=== PATIENT | male | born 1995 | race Two or more races ===

== ENCOUNTER 2019-08-18 13:27 | Emergency (ER) | payer OTHER ==
[~2019-08-18] VITALS: Ht 172.7 cm; Wt 79.0 kg
[2019-08-18] MEDS ORDERED: IV NORMAL SALINE 1,000ML 1,000 ML IV SCH (13:57)
[2019-08-18] MEDS ORDERED: ASPIRIN ENTERIC COATED 81 MG TABLET.DR. PO ONE (14:08)
--- NOTE | 2019-08-18 14:09 | PHYS DOC ---
Adult General Chief Complaint Chief Complaint: CHEST PAIN-NON CARDIAC NATURE HPI HPI 24-year-old male presents with chest pain. He was sitting on his couch around 8 this morning when he began the pressure was a 4 out of 10 on the left side of his chest. It seemed to radiate into his left arm. He felt mildly short of breath, but denies diaphoresis. He is never had this before. He has no previous cardiac history. Pain is currently a 4 out of 10. It is the same pressure feeling. He does not currently feel short of breath. Patient denies fever, chills, cough. Upper chest is tender to palpation. Denies rash. Review of Systems Review of Systems Constitutional: Denies fever or chills [] Eyes: Denies change in visual acuity, redness, or eye pain [] HENT: Denies nasal congestion or sore throat [] Respiratory: Denies cough or shortness of breath [] Cardiovascular: No additional information not addressed in HPI [] GI: Denies abdominal pain, nausea, vomiting, bloody stools or diarrhea [] : Denies dysuria or hematuria [] Musculoskeletal: Denies back pain or joint pain [] Integument: Denies rash or skin lesions [] Neurologic: Denies headache, focal weakness or sensory changes [] Endocrine: Denies polyuria or polydipsia [] All other systems were reviewed and found to be within normal limits, except as documented in this note. Current Medications Current Medications Current Medications Medications (Trade) Dose Ordered Sig/Negar Start Time Stop Time Status Last Admin Dose Admin Aspirin (Children'S Aspirin) 324 mg 1X ONCE 08/18/19 14:00 08/18/19 14:01 UNV Sodium Chloride 1,000 ml @ 1,000 mls/hr Q1H 08/18/19 13:57 08/18/19 14:56 UNV Physical Exam Physical Exam Constitutional: Well developed, well nourished, no acute distress, non-toxic appearance. [] HENT: Normocephalic, atraumatic, bilateral external ears normal, oropharynx moist, no oral exudates, nose normal. [] Eyes: PERRLA, EOMI, conjunctiva normal, no discharge. [] Neck: Normal range of motion, no tenderness, supple, no stridor. [] Cardiovascular: Heart rate 52, regular rhythm, no murmur [] Lungs & Thorax: Bilateral breath sounds clear to auscultation. Upper chest tenderness to palpation.[] Abdomen: Bowel sounds normal, soft, no tenderness, no masses, no pulsatile masses. [] Skin: Warm, dry, no erythema, no rash. [] Back: No tenderness, no CVA tenderness. [] Extremities: No tenderness, no cyanosis, no clubbing, ROM intact, no edema. [] Neurologic: Alert and oriented X 3, normal motor function, normal sensory funct ion, no focal deficits noted. [] Psychologic: Affect normal, judgement normal, mood anxious. [] EKG EKG Sinus rhythm, rate 52, normal axis, no ST elevations or depressions.[] Radiology/Procedures Radiology/Procedures [] Course & Med Decision Making Course & Med Decision Making Pertinent Labs and Imaging studies reviewed. (See chart for details) Patient's labs are unremarkable. Troponin is negative. His EKG is unremarkable. His chest x-ray is negative for acute findings. I do not see any cardiopulmonary cause for the patient's symptoms. I believe this is musculoskeletal. I have advised NSAID therapy and rest. He is stable for discharge at this time. [] Dragon Disclaimer Dragon Disclaimer This electronic medical record was generated, in whole or in part, using a voice recognition dictation system. The HEART Score for CP Pts HEART Score for Chest Pain: HEART Score for Chest Pain Response (Comments) Value History Slighlty/Non-Suspicious 0 ECG Normal 0 Age < 45 0 Risk Factors No Risk Factors 0 Troponin < Normal Limit 0 Total 0 Risk Factors: Risk Factors: DM, Current or recent (<one month) smoker, HTN, HLP, family history of CAD, obesity. Risk Scores: Score 0 - 3: 2.5% MACE over next 6 weeks - Discharge Home Score 4 - 6: 20.3% MACE over next 6 weeks - Admit for Clinical Observation Score 7 - 10: 72.7% MACE over next 6 weeks - Early Invasive Strategies Departure Departure: Impression: Primary Impression: Chest wall pain Disposition: HOME, SELF-CARE Condition: STABLE Referrals: PCP,UNKNOWN (PCP) Patient Instructions: Chest Wall Pain, [id number] [place] DO Aug 18, 2019 14:09
--- NOTE | 2019-08-18 14:14 | EKG ---
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
[2019-08-18] MEDS ORDERED: ASPIRIN 81 MG TAB.CHEW PO ONE (14:15)
--- NOTE | 2019-08-18 14:19 | RAD ---
EXAM: CHEST PA LATERAL INDICATION: Chest pain, shortness of breath.. TECHNIQUE: PA and lateral views COMPARISON: None FINDINGS: The heart size is normal. The great vessels appear unremarkable. There is no hilar or mediastinal mass. The lungs are clear. There is no pleural effusion or pneumothorax. There are no significant osseous abnormalities. IMPRESSION: No active cardiopulmonary disease. Electronically signed by: Cris Garcia MD (08/18/2019 2:17 PM) [facility]
[2019-08-18 14:34] LABS: BASO # 0.1 x10^3/uL (0.0-0.2); BASO % 1 % (0-3); EOS # 0.3 x10^3/uL (0.0-0.7); EOS % 4 % (0-3); HEMATOCRIT 44.4 % (39.0-53.0); HEMOGLOBIN 15.1 g/dL (13.0-17.5); LYMPH # 2.2 x10^3/uL (1.0-4.8); LYMPH % 34 % (24-48); MEAN CORPUSCULAR HEMOGLOBIN 30 pg (25-35); MEAN CORPUSCULAR HGB CONC 34 g/dL (31-37); MEAN CORPUSCULAR VOLUME 89 fL (79-100); MONO # 0.5 x10^3/uL (0.0-1.1); MONO % 8 % (0-9); NEUT # 3.4 x10^3uL (1.8-7.7); NEUT % 53 % (31-73); PLATELET COUNT 206 x10^3/uL (140-400); RED BLOOD COUNT 4.98 x10^6/uL (4.30-5.70); RED CELL DISTRIBUTION WIDTH 13.5 % (11.5-14.5); WHITE BLOOD COUNT 6.5 x10^3/uL (4.0-11.0)
[2019-08-18 15:07] LABS: CALCIUM 9.1 mg/dL (8.5-10.1); CREATININE 0.8 mg/dL (0.7-1.3); GFR 119.8; POTASSIUM 4.2 mmol/L (3.5-5.1)
[2019-08-18 15:13] LABS: ALBUMIN 4.2 g/dL (3.4-5.0); ALBUMIN/GLOBULIN RATIO 1.1 (1.0-1.7); TOTAL BILIRUBIN 0.9 mg/dL (0.2-1.0); TOTAL PROTEIN 7.9 g/dL (6.4-8.2)
[2019-08-18 15:18] VITALS: BP 117/64
== END 2019-08-18 15:40 | disposition home or self-care (01) ==
LOC: ER 13:27
DX: R07.89 Other chest pain (principal)
CPT/HCPCS: 36415; 71046; 80053; 84484; 85025; 93005; 99285; J7030

== ENCOUNTER 2019-08-21 23:39 | Emergency (ER) | payer OTHER ==
[~2019-08-21] VITALS: Ht 172.7 cm; Wt 79.0 kg
[2019-08-21] MEDS ORDERED: IV RINGERS SOLUTION,LACTATED 1,000 ML IV SCH (23:46)
[2019-08-22] MEDS ORDERED: FAMOTIDINE 20 MG/2 ML VIAL IVP ONE
[2019-08-22] MEDS ORDERED: KETOROLAC 30 MG/ML VIAL. IVP ONE
[2019-08-22] MEDS ORDERED: ASPIRIN 81 MG TAB.CHEW PO ONE
[2019-08-22] MEDS ORDERED: ONDANSETRON PF 4 MG/2 ML VIAL. IVP ONE
--- NOTE | 2019-08-22 00:15 | PHYS DOC ---
Past History Past Medical History: No Pertinent History, GERD Past Surgical History: Other Additional Past Surgical Histo: wisdom teeth Alcohol Use: Occasionally Adult General Chief Complaint Chief Complaint: MULTIPLE COMPLAINTS. .. I have chest pain.. I have vomiting... 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 Patient thinks he may have eaten some bad food. Patient denies any specific ill contacts. No recent travel. No history immunosuppression. No history of trauma. Normally healthy. Patient was seen on 08-18-2019 chest wall pain complaints. Patient's cardiac troponin was 0.017 on 08/18/2019. to day trop. is 0.017. Pt. works out almost daily. This is some hx of bad food intake. Pt. has not had a stool since 3 days ago. Patient is up-to-date with vaccinations. Review of Systems Review of Systems Constitutional: Complaints of fever or chills [] Eyes: Denies change in visual acuity, redness, or eye pain [] HENT: Complaints nasal congestion [] Respiratory: Denies cough or shortness of breath [. Patient does have]history of chest wall pain Cardiovascular: No additional information not addressed in HPI [] GI: Complaints of generalized abdominal pain, nausea, vomiting,. Patient denies bloody stools or diarrhea []history of constipation : Denies dysuria or hematuria [] Musculoskeletal: Denies back pain or joint pain [] Integument: Denies rash or skin lesions [] Neurologic: Denies headache, focal weakness or sensory changes [] Endocrine: Denies polyuria or polydipsia [] All other systems were reviewed and found to be within normal limits, except as documented in this note. Family History Family History Non-contributory Current Medications Current Medications Current Medications Medications (Trade) Dose Ordered Sig/Negar Start Time Stop Time Status Last Admin Dose Admin Aspirin (Children'S Aspirin) 324 mg 1X ONCE 08/22/19 00:00 08/22/19 00:01 UNV Famotidine (Pepcid Vial) 20 mg 1X ONCE 08/22/19 00:00 08/22/19 00:01 UNV Ketorolac Tromethamine (Toradol 30mg Vial) 30 mg 1X ONCE 08/22/19 00:00 08/22/19 00:01 UNV Lactated Ringer's 1,000 ml @ 1,000 mls/hr Q1H 08/21/19 23:46 08/22/19 00:45 UNV Ondansetron HCl (Zofran) 8 mg 1X ONCE 08/22/19 00:00 08/22/19 00:01 UNV Allergies Allergies Allergies Coded Allergies Type Severity Reaction Last Updated Verified No Known Drug Allergies 08/18/19 No Physical Exam Physical Exam Constitutional: Well developed, well nourished, moderate acute distress, non- toxic appearance. [] HENT: Normocephalic, atraumatic, bilateral external ears normal, oropharynx moist, no oral exudates, nose normal. [] Eyes: PERRLA, EOMI, conjunctiva normal, no discharge. [] Neck: Normal range of motion, no tenderness, supple, no stridor. [] Cardiovascular: Bradycardia Heart rate regular rhythm, no murmur [] Lungs & Thorax: Bilateral breath sounds equal at apexes on auscultation [] Abdomen: Bowel sounds hyperactive, soft, epigastric and left upper quadrant tenderness, no masses, no pulsatile masses. Very distended. Some rebound to left upper quadrant Skin: Warm, dry, no erythema, no rash. [] Tattoos. Back: No tenderness, no CVA tenderness. [] Extremities: No tenderness, no cyanosis, no clubbing, ROM intact, no edema. [] No psoas sign. No cording appreciated Neurologic: Alert and oriented X 3, normal motor function, normal sensory function, no focal deficits noted. [] Psychologic: Affect anxious, , judgement normal, mood normal. [] EKG EKG My interpretation EKG shows a sinus rhythm at 63 bpm. Does have a right bundle- branch block.[] Radiology/Procedures Radiology/[place] [address] IMAGING REPORT Signed PATIENT: CLAUDIA STANLEYOUNT: [id number] : 1995 LOCATION: ER AGE: 24 SEX: M EXAM STATUS: REG ER ORD. PHYSICIAN: URBANO STRAUSS MD REASON: pain PROCEDURE: CHEST PA & LATERAL CHEST PA LATERAL History: Pain Comparison: Two-view chest, 4 days ago. Findings: The cardiomediastinal silhouette is normal. Pulmonary vasculature is normal. The lungs are clear. No pleural effusion or pneumothorax is seen. There is no acute bone abnormality. IMPRESSION: No acute cardiopulmonary process. Electronically signed by: Cleveland Rubio MD (08/22/2019 1:25 AM) [id number] DICTATED AND SIGNED BY: CLEVELAND RUBIO MD DATE: 08/22/19124 CC: URBANO STRAUSS MD; PCP,NO ~ [address] [place] [address] IMAGING REPORT Signed PATIENT: CLAUDIA STANLEYOUNT: [id number] : 1995 LOCATION: ER AGE: 24 SEX: M EXAM STATUS: REG ER ORD. PHYSICIAN: URBANO STRAUSS MD REASON: pain PROCEDURE: ABDOMEN SUPINE & UPRIGHT KUB, upright and supine. Clinical Indication: Pain. Comparison: None. Findings: There are no air-fluid levels on the upright image. There is moderate colon stool volume. There is no dilated small bowel. The bowel gas pattern is nonobstructive. No obvious organomegaly. No radiopaque calculus or foreign body. Bones unremarkable. IMPRESSION: 1. Nonobstructive bowel gas pattern. 2. Moderate colon stool volume suggests constipation. Electronically signed by: Cleveland Rubio MD (08/22/2019 1:24 AM) [id number] DICTATED AND SIGNED BY: CLEVELAND RUBIO MD DATE: 08/22/19123 CC: URBANO STRAUSS MD; PCP,NO ~ Course & Med Decision Making Course & Med Decision Making Pertinent Labs and Imaging studies reviewed. (See chart for details) Patient stay on a clear fluid diet only for the next 48 hours. Patient to expect some cramping and passage of stool. Patient take Zofran 8 mg up 4 times a day for active vomiting. Take Tylenol and ibuprofen for pain. Take Zantac 150 twice a day. Follow-up primary care. Return if any concern. Patient have re-exam if no improvement after passage of stool. Follow-up at [place]. []Impression: 1. Abdomen pain 2. Chest wall pain 3. Constipation 4. Viral syndrome versus food poisoning 5. GERD, Gastritis Dragon Disclaimer Dragon Disclaimer This electronic medical record was generated, in whole or in part, using a voice recognition dictation system. Departure Departure: Disposition: HOME/RESIDENCE PRIOR TO ADM Condition: STABLE Referrals: PCP,NO (PCP) Scripts Ranitidine Hcl (ZANTAC) 150 Mg Tablet 150 MG PO BID for gastritis and reflux for 30 Days, #60 TAB Prov: URBANO STRAUSS MD 08/22/19 Ondansetron Hcl (ZOFRAN) 8 Mg Tablet 8 MG PO QIDPRN PRN for for active vomiting, #30 BOTTLE Prov: URBANO STRAUSS MD 08/22/19 Jean Paul Disclaimer This chart was dictated in whole or in part using Voice Recognition software in a busy, high-work load, and often noisy Emergency Department environment. It may contain unintended and wholly unrecognized errors or omissions. Dragon Disclaimer This chart was dictated in whole or in part using Voice Recognition software in a busy, high-work load, and often noisy Emergency Department environment. It may contain unintended and wholly unrecognized errors or omissions. URBANO STRAUSS MD Aug 22, 2019 00:15
[2019-08-22 00:26] LABS: BASO # 0.1 x10^3/uL (0.0-0.2); BASO % 1 % (0-3); EOS # 0.5 x10^3/uL (0.0-0.7); EOS % 7 % (0-3); HEMATOCRIT 41.9 % (39.0-53.0); HEMOGLOBIN 14.4 g/dL (13.0-17.5); LYMPH # 3.1 x10^3/uL (1.0-4.8); LYMPH % 43 % (24-48); MEAN CORPUSCULAR HEMOGLOBIN 31 pg (25-35); MEAN CORPUSCULAR HGB CONC 34 g/dL (31-37); MEAN CORPUSCULAR VOLUME 89 fL (79-100); MONO # 0.5 x10^3/uL (0.0-1.1); MONO % 7 % (0-9); NEUT % 41 % (31-73); PLATELET COUNT 210 x10^3/uL (140-400); RED BLOOD COUNT 4.71 x10^6/uL (4.30-5.70); RED CELL DISTRIBUTION WIDTH 13.4 % (11.5-14.5); WHITE BLOOD COUNT 7.2 x10^3/uL (4.0-11.0)
[2019-08-22 00:32] LABS: BILIRUBIN,URINE NEG (NEG); CLARITY,URINE CLEAR; COLOR,URINE YELLOW; GLUCOSE,URINE NEG (NEG)
[2019-08-22 00:33] LABS: BACTERIA,URINE 0 /HPF (0-FEW); NITRITE,URINE NEG (NEG); RBC,URINE 0 /HPF (0-2); SQUAMOUS EPITHELIAL CELL,UR OCC /LPF; WBC,URINE 0 /HPF (0-4)
[2019-08-22 00:34] LABS: CALCIUM 8.5 mg/dL (8.5-10.1); CREATININE 0.9 mg/dL (0.7-1.3); GFR 104.6; POTASSIUM 3.6 mmol/L (3.5-5.1)
[2019-08-22 00:39] LABS: BARBITURATES NEG (NEG); BENZODIAZEPINES NEG (NEG); CANNABINOIDS NEG (NEG); COCAINE NEG (NEG); METHADONE NEG (NEG); OPIATES NEG (NEG); PHENCYCLIDINE NEG (NEG)
[2019-08-22 00:41] LABS: AMPHETAMINE/METHAMPHETAMINE NEG (NEG)
[2019-08-22 00:46] LABS: ALBUMIN 3.9 g/dL (3.4-5.0); DIRECT BILIRUBIN 0.2 mg/dL (0.0-0.2); MAGNESIUM 1.9 mg/dL (1.8-2.4); TOTAL BILIRUBIN 0.4 mg/dL (0.2-1.0); TOTAL PROTEIN 7.5 g/dL (6.4-8.2)
[2019-08-22 00:51] LABS: INFLUENZA A PATIENT NEGATIVE (NEGATIVE); INFLUENZA B PATIENT NEGATIVE (NEGATIVE)
--- NOTE | 2019-08-22 01:13 | EKG ---
[address] [address] Test Date: 2019-08-21 Test Time: 23:48:55 Pat Name: CLAUDIA STANLEY Department: Room: Gender: M [employer]: : 1995 Requested By: URBANO STRAUSS Order Number: [id number] Reading MD: Measurements Intervals [place] Rate: 63 P: 42 WI: 190 QRS: 24 QRSD: 98 T: 64 QT: 358 QTc: 369 Interpretive Statements SINUS RHYTHM S1,S2,S3 PATTERN INCOMPLETE RIGHT BUNDLE BRANCH BLOCK T ABNORMALITY IN HIGH LATERAL LEADS ABNORMAL ECG RI6.01 No previous ECG available for comparison
--- NOTE | 2019-08-22 01:27 | RAD ---
KUB, upright and supine. Clinical Indication: Pain. Comparison: None. Findings: There are no air-fluid levels on the upright image. There is moderate colon stool volume. There is no dilated small bowel. The bowel gas pattern is nonobstructive. No obvious organomegaly. No radiopaque calculus or foreign body. Bones unremarkable. IMPRESSION: 1. Nonobstructive bowel gas pattern. 2. Moderate colon stool volume suggests constipation. Electronically signed by: Cleveland Shelley MD (08/22/2019 1:24 AM) [id number]
--- NOTE | 2019-08-22 01:28 | RAD ---
CHEST PA LATERAL History: Pain Comparison: Two-view chest, 4 days ago. Findings: The cardiomediastinal silhouette is normal. Pulmonary vasculature is normal. The lungs are clear. No pleural effusion or pneumothorax is seen. There is no acute bone abnormality. IMPRESSION: No acute cardiopulmonary process. Electronically signed by: Cleveland Shelley MD (08/22/2019 1:25 AM) [id number]
[2019-08-22] MEDS ORDERED: MAGNESIUM CITRATE 296 ML SOLUTION. PO ONE (02:00)
[2019-08-22] MEDS ORDERED: ONDA8TAB9 PO (02:01)
[2019-08-22] MEDS ORDERED: RANI-376 PO (02:01)
[2019-08-22 02:21] VITALS: BP 100/46
[2019-08-22 15:01] LABS: THYROID STIM HORMONE (TSH) 2.816 uIU/mL (0.358-3.740)
== END 2019-08-22 02:47 | disposition home or self-care (01) ==
LOC: ER 23:39
DX: R07.89 Other chest pain (principal); K59.00 Constipation, unspecified; K21.9 Gastro-esophageal reflux disease without esophagitis; K29.70 Gastritis, unspecified, without bleeding; B34.9 Viral infection, unspecified
CPT/HCPCS: 36415; 71046; 74019; 80048; 80061; 80076; 80307; 81001; 82150; 82550; 83690; 83735; 83880; 84443; 84484; 85025; 85379; 85610; 85730; 87070; 87804; 87880; 93005; 96361; 96374; 96375; 99285; J1885; J2405; J3490; J7120